=== PATIENT | female | born 1960 | race Hispanic/Latino ===

== ENCOUNTER 2018-05-06 11:20 | Outpatient (CLI) | payer BC ==
--- NOTE | 2018-05-06 12:01 | XRay Report ---
CHEST XRAY, 2 VIEWS: History: Smoker. Findings: There is mild diffuse interstitial coarsening. The lungs are hyperexpanded but clear. No infiltrate, pleural fluid or pneumothorax is detected. The cardiac silhouette and pulmonary vasculature are within normal limits for technique. The bony thorax is unremarkable. IMPRESSION: Changes consistent with COPD. No acute cardiopulmonary process.
== END 2018-05-06 11:21 | disposition home or self-care (01) ==
LOC: XRAY 11:20
PROVIDERS: ATTEND Nurse Practitioner Family
DX: F17.200 Nicotine dependence, unspecified, uncomplicated (principal)
CPT/HCPCS: 71046; 93005; 93010

== ENCOUNTER 2018-09-27 11:24 | Outpatient (CLI) | payer BC ==
--- NOTE | 2018-09-27 13:41 | XRay Report ---
LEFT HIP, 2 VIEWS INDICATION: M16.12,UNLIATERAL PRIMARY OSTEOATHRITIS, LEFT HIP. COMPARISON: 07/05/2018 IMPRESSION: Left hip arthroplasty changes appear stable since the comparison exam. There is no evide nce for fracture, malalignment or loosening of the hardware. The pelvic bones are intact. Normal soft tissues. No significant DJD. Signer Name: Sarath Casas Jr, MD Signed: 09/27/2018 1:37 PM Workstation Name: [id number]
== END 2018-09-27 11:25 | disposition home or self-care (01) ==
LOC: XRAY 11:24
PROVIDERS: ATTEND Orthopaedic Surgery
DX: M16.12 Unilateral primary osteoarthritis, left hip (principal); J44.9 Chronic obstructive pulmonary disease, unspecified; Z96.652 Presence of left artificial knee joint

== ENCOUNTER 2019-01-12 10:44 | Outpatient (CLI) | payer BC ==
[2019-01-12 11:05] LABS: Basophils # (Auto) 0.1 K/mm3 (0.0-0.1); Basophils % (Auto) 2.5 % (0.0-1.8); Eosinophils # (Auto) 0.3 K/mm3 (0.0-0.4); Eosinophils % (Auto) 5.9 % (0.0-4.3); Hematocrit 42.8 % (30.3-42.9); Hemoglobin 14.2 gm/dl (10.1-14.3); Lymphocytes # (Auto) 1.5 K/mm3 (1.2-5.4); Lymphocytes % (Auto) 32.6 % (13.4-35.0); Mean Corpuscular HGB Conc 33 % (30-34); Mean Corpuscular Volume 95 fl (79-97); Monocytes # (Auto) 0.5 K/mm3 (0.0-0.8); Monocytes % (Auto) 10.9 % (0.0-7.3); Platelet Count 307 K/mm3 (140-440); Red Blood Count 4.52 M/mm3 (3.65-5.03); Red Cell Distribution Width 13.6 % (13.2-15.2)
[2019-01-12 11:19] LABS: Alanine Aminotransferase 16 units/L (7-56); Albumin 4.4 g/dL (3.9-5); BUN/Creatinine Ratio 28; Blood Urea Nitrogen 17 mg/dL (7-17); Calcium 9.3 mg/dL (8.4-10.2); HDL Cholesterol 73 mg/dL (40-59); Hemolysis Index 3; LDL Cholesterol,Direct 79 mg/dL (50-130)
[2019-01-16 13:13] LABS: Vitamin D, 25-OH, D2 39 ng/mL
[2019-01-22 11:11] LABS: HIV-1 Antibody Differentiation SEE SCANNED RESULT; HIV-2 Antibody Differentiation SEE SCANNED RESULT
== END 2019-01-12 10:45 | disposition home or self-care (01) ==
LOC: LAB 10:44
PROVIDERS: ATTEND Internal Medicine
DX: Z00.00 Encounter for general adult medical examination without abnormal findings (principal); Z13.220 Encounter for screening for lipoid disorders; Z13.29 Encounter for screening for other suspected endocrine disorder; Z13.21 Encounter for screening for nutritional disorder; K21.9 Gastro-esophageal reflux disease without esophagitis; Z90.710 Acquired absence of both cervix and uterus
CPT/HCPCS: 36415; 80053; 80061; 82306; 82607; 83036; 84443; 85025; 86689

== ENCOUNTER 2019-10-19 10:31 | Outpatient (CLI) | payer BC ==
--- NOTE | 2019-10-19 13:53 | XRay Report ---
LEFT HIP 2 VIEW(S) INDICATION / CLINICAL INFORMATION: M16.12Unilateral primary osteoarthritis, left hip COMPARISON: 09/27/2018 FINDINGS: Hip arthroplasty remains in place. 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 This is unchanged from prior. There is moderate DJD in the right hi p. Signer Name: Norbert Richards MD Signed: 10/19/2019 1:49 PM Workstation Name: [id number]
== END 2019-10-19 10:32 | disposition home or self-care (01) ==
LOC: XRAY 10:31
PROVIDERS: ATTEND Internal Medicine
DX: M16.12 Unilateral primary osteoarthritis, left hip (principal); Z96.642 Presence of left artificial hip joint

== ENCOUNTER 2020-01-18 10:30 | Outpatient (CLI) | payer BC ==
[2020-01-18 11:21] LABS: Basophils # (Auto) 0.1 K/mm3 (0.0-0.1); Basophils % (Auto) 2.5 % (0.0-1.8); Eosinophils # (Auto) 0.2 K/mm3 (0.0-0.4); Eosinophils % (Auto) 4.9 % (0.0-4.3); Hematocrit 39.1 % (30.3-42.9); Hemoglobin 13.2 gm/dl (10.1-14.3); Lymphocytes # (Auto) 1.6 K/mm3 (1.2-5.4); Lymphocytes % (Auto) 32.8 % (13.4-35.0); Mean Corpuscular HGB Conc 34 % (30-34); Mean Corpuscular Volume 95 fl (79-97); Monocytes # (Auto) 0.7 K/mm3 (0.0-0.8); Platelet Count 269 K/mm3 (140-440); Red Blood Count 4.12 M/mm3 (3.65-5.03); Red Cell Distribution Width 12.7 % (13.2-15.2)
[2020-01-18 11:29] LABS: Alanine Aminotransferase 15 units/L (7-56); Albumin 4.3 g/dL (3.9-5); Blood Urea Nitrogen 12 mg/dL (7-17); Calcium 9.5 mg/dL (8.4-10.2); Chol/HDL Ratio 2.04 %; HDL Cholesterol 83 mg/dL (40-59); Hemolysis Index 2; LDL Cholesterol,Direct 83 mg/dL (50-130)
[2020-01-18 11:32] LABS: BUN/Creatinine Ratio 17
[2020-01-21 13:40] LABS: Vitamin D, 25-OH, D2 4 ng/mL
== END 2020-01-18 10:31 | disposition home or self-care (01) ==
LOC: LAB 10:30
PROVIDERS: ATTEND Internal Medicine
DX: Z00.00 Encounter for general adult medical examination without abnormal findings (principal); Z13.220 Encounter for screening for lipoid disorders; Z13.29 Encounter for screening for other suspected endocrine disorder; Z13.21 Encounter for screening for nutritional disorder
CPT/HCPCS: 36415; 80053; 80061; 82306; 82607; 83036; 84443; 85025

== ENCOUNTER 2021-01-18 11:28 | Outpatient (CLI) | payer BC ==
[2021-01-18 12:25] LABS: Alanine Aminotransferase 13 units/L (7-56); Albumin 4.2 g/dL (3.9-5); Blood Urea Nitrogen 11 mg/dL (7-17); Calcium 8.8 mg/dL (8.4-10.2); Chol/HDL Ratio 2.06 %; HDL Cholesterol 81 mg/dL (40-59); Hemolysis Index 13; LDL Cholesterol,Direct 77 mg/dL (50-130)
[2021-01-18 12:55] LABS: Basophils # (Auto) 0.1 K/mm3 (0.0-0.1); Basophils % (Auto) 2.4 % (0.0-1.8); Eosinophils # (Auto) 0.3 K/mm3 (0.0-0.4); Hematocrit 40.9 % (30.3-42.9); Hemoglobin 13.3 gm/dl (10.1-14.3); Lymphocytes # (Auto) 1.5 K/mm3 (1.2-5.4); Lymphocytes % (Auto) 31.4 % (13.4-35.0); Mean Corpuscular HGB Conc 33 % (30-34); Mean Corpuscular Volume 95 fl (79-97); Monocytes # (Auto) 0.7 K/mm3 (0.0-0.8); Platelet Count 271 K/mm3 (140-440); Red Blood Count 4.31 M/mm3 (3.65-5.03)
[2021-01-18 13:06] LABS: BUN/Creatinine Ratio 18
== END 2021-01-18 11:29 | disposition home or self-care (01) ==
LOC: LAB 11:28
PROVIDERS: ATTEND Internal Medicine
DX: Z00.00 Encounter for general adult medical examination without abnormal findings (principal); Z13.1 Encounter for screening for diabetes mellitus; Z13.220 Encounter for screening for lipoid disorders; E55.9 Vitamin D deficiency, unspecified; Z13.29 Encounter for screening for other suspected endocrine disorder
CPT/HCPCS: 36415; 80053; 80061; 82306; 84443; 85025

== ENCOUNTER 2021-09-13 08:58 | Outpatient (CLI) | payer BC ==
--- NOTE | 2021-09-13 11:52 | XRay Report ---
LUMBAR SPINE 3 VIEWS INDICATION / CLINICAL INFORMATION: LOW BACK PAIN.. COMPARISON: None available. FINDINGS: BONES / JOINT(S): No acute fracture or subluxation. Underlying osteopenia. Localized DDD at L1-2 is m oderate/advanced. Mild DDD L2-3. Previous placement of left hip prosthesis. Advanced DJD right hip. SOFT TISSUES: No significant abnormality. ADDITIONAL FINDINGS: None. Signer Name: Grzegorz Mallory MD Signed: 09/13/2021 11:47 AM Workstation Name: [id number]
== END 2021-09-13 08:59 | disposition home or self-care (01) ==
LOC: XRAY 08:58
PROVIDERS: ATTEND Internal Medicine
DX: M54.50 Low back pain, unspecified (principal)
CPT/HCPCS: 72100

== ENCOUNTER 2021-10-07 12:04 | Outpatient (CLI) | payer BC ==
--- NOTE | 2021-10-07 15:15 | XRay Report ---
XR foot 3+V LT INDICATION / CLINICAL INFORMATION: D79.2. COMPARISON: None available. FINDINGS: BONES/JOINT(S): No acute fracture or subluxation. Mild DJD in the mid foot articulations. No focal fatimah ne erosions or focal osteopenia to suggest inflammatory arthropathy. SOFT TISSUES: No significant abnormality. ADDITIONAL FINDINGS: None. Signer Name: Norbert Richards MD Signed: 10/07/2021 3:11 PM Workstation Name: [id number]
== END 2021-10-07 12:05 | disposition home or self-care (01) ==
LOC: XRAY 12:04
PROVIDERS: ATTEND Podiatrist Foot & Ankle Surgery
DX: M19.072 Primary osteoarthritis, left ankle and foot (principal); D49.2 Neoplasm of unspecified behavior of bone, soft tissue, and skin